=== PATIENT | female | born 1995 | race Caucasian/White ===

== ENCOUNTER 2019-09-19 03:26 | Emergency (ER) | payer MEDICAID ==
[~2019-09-19] VITALS: Ht 160 cm; Wt 83.9 kg
[2019-09-19 04:35] VITALS: BP_SYST 129
--- NOTE | 2019-09-19 04:35 | NUR ---
PT AAO AND AMBULATORY C/O SUDDEN ONSET OF ABDOMINAL PAIN THAT WOKE HER FROM SLEEP. PT C/O CHILLS AND HEADACHE C/O 7/10 PAIN SCALE. PT WAITING FOR ER BED IN LOBBY.
--- NOTE | 2019-09-19 05:30 | NUR ---
PT TO BE SEEN BY MD IN TRIAGE, NO ER BEDS AVAILBALE.
--- NOTE | 2019-09-19 05:35 | NUR ---
ER Dr. ALMAZAN at bedside examining patient.
[2019-09-19] MEDS ORDERED: LIDOCAINE VISCOUS 2%, 15 ML UDC MM ONE (05:45)
[2019-09-19] MEDS ORDERED: MAG-AL HYDROX/SIMETH 30 ML UDC PO ONE (05:45)
[2019-09-19] MEDS ORDERED: DICYCLOMINE HCL 20 MG/2 ML AMP IM ONE (05:45)
[2019-09-19] MEDS ORDERED: DICYCLOMINE HCL 10 MG CAPSULE PO ONE (06:00)
[2019-09-19] MEDS ORDERED: DICYCLOMINE HCL 10 MG/5 ML SOLUTION PO ONE (06:15)
[2019-09-19 06:23] LABS: BILIRUBIN,URINE NEGATIVE (NEGATIVE); BLOOD, URINE NEGATIVE (NEGATIVE); CLARITY/URINE CLEAR (CLEAR); COLOR,URINE YELLOW (YELLOW); GLUCOSE,URINE NEGATIVE (NEGATIVE); KETONES,URINE NEGATIVE (NEGATIVE); LEUKOCYTE ESTERASE ,URINE NEGATIVE (NEGATIVE); NITRITE, URINE NEGATIVE (NEGATIVE); PH,URINE 5.5 (5.0-8.0); PROTEIN URINE NEGATIVE (NEGATIVE); UROBILINOGEN,URINE 0.2 (0.2-1.0)
[2019-09-19] MEDS ORDERED: DICYCLOMINE HCL 10 MG/5 ML SOLUTION ONE (06:33)
[2019-09-19 06:48] LABS: BASOPHILS % (AUTO) 0.3 % (0.0-2.0); EOSINOPHILS # (AUTO) 0.1 K/uL (0.0-0.4); EOSINOPHILS % (AUTO) 1.2 % (0.0-4.0); HEMATOCRIT 38.6 % (36-48); LYMPHOCYTES # (AUTO) 0.5 K/uL (1.0-5.5); LYMPHOCYTES % (AUTO) 12.3 % (20.5-51.5); MEAN CORPUSCULAR HEMOGLOBIN 31 pg (27-31); MEAN CORPUSCULAR HGB CONC 34 % (32-36); MEAN CORPUSCULAR VOLUME 92 fL (79.0-98.0); MONOCYTES # (AUTO) 0.4 K/uL (0.0-1.0); MONOCYTES % (AUTO) 9.6 % (1.7-9.3); NEUTROPHILS # (AUTO) 3.2 K/uL (1.8-7.7); NEUTROPHILS % (AUTO) 76.6 % (40.0-70.0); PLATELET COUNT (AUTO) 179 K/uL (130-430); RED BLOOD CELL COUNT(AUTO) 4.22 MIL/uL (4.2-6.2); RED CELL DISTRIBUTION WIDTH 13.1 % (9.0-15.0); WHITE BLOOD COUNT (AUTO) 4.1 K/uL (4.8-10.8)
[2019-09-19 06:55] LABS: CALCIUM 8.8 mg/dL (8.4-11.0); CREATININE 0.83 mg/dL (0.55-1.30)
[2019-09-19 07:07] LABS: ALBUMIN 3.9 g/dL (3.4-4.8); TOTAL BILIRUBIN 0.2 mg/dL (0.0-1.0)
[2019-09-19 07:19] VITALS: BP_SYST 122
--- NOTE | 2019-09-19 07:19 | NUR ---
Patient given written and verbal discharge instructions and verbalizes understanding. ER MD discussed with patient the results and treatment provided. Patient in stable condition. ID arm band removed. Rx of bentyl 20 mg given. Patient educated on pain management and to follow up with PMD. Pain Scale 5/10. Opportunity for questions provided and answered.
== END 2019-09-19 07:19 | disposition home or self-care (01) ==
LOC: SED 03:26
DX: R10.13 Epigastric pain (principal)
CPT/HCPCS: 36415; 80053; 81003; 81025; 83690; 84702; 85025; 99284; J2001; J0500